=== PATIENT | female | born 1990 | race Caucasian/White ===

== ENCOUNTER → 2024-04-30 17:04 | Outpatient (REF) | payer OTHER, SELFPAY | LOC: RAD 17:04 | PROVIDERS: ATTENDING PHYSICIAN Nurse Practitioner Family | DX: M79.604 Pain in right leg (principal) | CPT/HCPCS: 93971 ==

== ENCOUNTER 2025-02-01 10:14 | Emergency (ER) | payer BC, SELFPAY ==
[2025-02-01 10:31] VITALS: BP 117/68
[2025-02-01 11:00] LABS: Hematocrit 35.1 % (37.0-47.0); Hemoglobin 11.5 g/dL (12.0-16.0); Mean Corp Hgb Conc. 32.8 g/dL (33.0-37.0); Mean Corpuscular Volume 91.4 fL (81.0-99.0); Nucleated Red Blood Cells % 0 %; Platelet Count 301 10^3/uL (130-400); Red Cell Dist. Width 11.5 % (11.5-14.5)
[2025-02-01 11:10] LABS: HCG, Serum Qualitative Screen Negative
[2025-02-01 11:16] LABS: ALT (SGPT) 14 U/L (0-35); AST (SGOT) 17 U/L (14-36); Albumin 4.7 g/dl (3.5-5.0); Alkaline Phosphatase 61 U/L (38-126); Blood Urea Nitrogen 4 mg/dl (7-17); Calcium 8.9 mg/dl (8.4-10.2); Carbon Dioxide 23 mmol/L (22-30); Chloride 108 mmol/L (98-107); Glucose 111 mg/dl (70-99); Potassium 3.8 mmol/L (3.5-5.1); Sodium 141 mmol/L (135-145); Total Protein 7.4 g/dl (6.3-8.2); eGFR > 60.00
[2025-02-01 11:33] VITALS: BP 107/67
--- NOTE | 2025-02-01 11:56 | ED.GENMED ---
History of Present Illness
General
Chief Complaint: Fainting/Passed Out
Source: patient and spouse
Exam Limitations: none
Time Seen by Provider: 02/01/25 11:46
History of Present Illness
History of Present Illness:
See MDM
Past History
Past History
ED Past Medical History: Hypothyroidism and Psychiatric (Depression)
ED Past Surgical History: None
Social History
Tobacco: Non-smoker
Alcohol: None
Drug: None
Personal: Single
Living: with family
Phy Exam
Physical Exam
Physical Exam:
See MDM
Course
Orders/Labs/Results
Orders:
Orders
02/01/25 10:37
ECG [Electrocardiogram (*1)] Urgent
Reason for Study: Syncope
02/01/25 10:38
EKG- Treatment ONCE
Test Result ONCE
02/01/25 10:42
Complete Blood Count/With Diff Urgent
Comprehensive Metabolic Panel Urgent
HCG, Serum Qualitative Screen Urgent
TSH Reflex To Free T4 Urgent
02/01/25 11:59
Ibuprofen [Motrin] 600 mg PO NOW STA
Abnormal Lab Results
02/01/25
10:42
RBC 3.84 L 10^6/uL
(4.20-5.40)
Hgb 11.5 L g/dL
(12.0-16.0)
Hct 35.1 L %
(37.0-47.0)
MCHC 32.8 L g/dL
(33.0-37.0)
Absolute Lymphs (auto) 1.1 L 10^3/uL
(1.2-3.4)
Neutrophils % 79.5 H %
(42.2-75.2)
Lymphocytes % 15.9 L %
(20.5-51.1)
Chloride 108 H mmol/L
(98-107)
BUN 4 L mg/dl
(7-17)
Glucose 111 H mg/dl
(70-99)
02/01/25 10:42
02/01/25 10:42
Vital Signs
Initial and Last Documented VS:
Initial Vital Signs
Temp Pulse Resp BP Pulse Ox
98.7 F 84 16 117/68 100
02/01/25 10:31 02/01/25 10:31 02/01/25 10:31 02/01/25 10:31 02/01/25 10:31
Last Documented Vital Signs
Temp Pulse Resp BP Pulse Ox
98.7 F 63 12 110/62 99
02/01/25 10:31 02/01/25 12:15 02/01/25 12:15 02/01/25 12:32 02/01/25 12:15
MDM/Problems Addressed
Differential Diagnosis Includes:
Note:
CHIEF COMPLAINT(S)
Headache and syncope episodes.
HISTORY OF PRESENT ILLNESS
The patient is a 34-year-old female with a history of bipolar disorder and anxiety, who presents with a headache and recent episodes of syncope. The patient reports having an episodes of syncope today, the first occurring at work, followed by a loss
of memory of certain events. The patient previously called a family member, stating she felt lost and had an anxiety attack. She has been stressed due to an issue with a friend and has recently been in quarantine after having COVID, which she
believes may be contributing factors. The patient is currently off her bipolar medication, which she has been off before, and reports experiencing side effects when discontinuing them. She is concerned about needing a refill for her medication, as
blood work and an EKG are required to obtain it. The patient states she has a headache and is unsure if she hit her head during the syncope episodes. at bedside and believes that much of her symptoms could be related to being off her
medications and anxiety.
PAST MEDICAL AND SURGICAL HISTORY
Bipolar disorder and anxiety.
SOCIAL DETERMINANTS OF HEALTH
The patient is experiencing stress due to a personal issue with a friend, and the stress of recent quarantine due to COVID infection.
PHYSICAL EXAM
- General: The patient appears well and engaged in conversation.
- Neurological: The patient reports experiencing a headache. Examination does not show any obvious neurological deficits; no slurred speech or difficulty with motor functions observed.
Nursing notes reviewed and vital signs reviewed.
PLAN
Obtain necessary blood work and EKG to facilitate medication refill for bipolar disorder. Administer PO motrin for headache.
DIFFERENTIAL DIAGNOSIS
- Syncope
- Anxiety disorder
- Medication withdrawal effects
- Dehydration
- Orthostatic hypotension
- Neurological event (rule out via CT if clinically indicated)
- Migraine
- Vasovagal response
- Seizure
- Post-COVID syndrome
SUMMARY OF ENCOUNTER
The patient presented with headache and syncope episodes. Considering the recent discontinuation of bipolar medication and quarantine-induced stress, these factors were identified as potential contributors to her symptoms. A non-urgent approach was
deemed appropriate, with emphasis on resuming her medication regimen. Immediate imaging was not pursued due to absence of significant trauma or neurological deficits, avoiding unnecessary radiation exposure.
DISPOSITION
Discharge.
EMERGENCY TREATMENTS ADMINISTERED
PO motrin for headache relief.
PATIENT EDUCATION AND COUNSELING
Discussed the unlikely benefit of a CT scan given the absence of neurological deficits and significant trauma. Emphasized importance of medication adherence and managing anxiety.
FOLLOW-UP INSTRUCTIONS
Recommended follow-up with her psychologist for medication management and stress-related concerns. Suggested close follow-up planning given the recent syncope and stress factors.
MEDICATION RECONCILIATION
- Motrin
- Continue current medication regimen as prescribed by her psychologist upon obtaining refill through coordination of necessary blood work and EKG results.
MEDICAL DECISION MAKING
- Number and Complexity of Problems Addressed: Chronic conditions affecting care include bipolar disorder and anxiety.
- Data:
- Category 1: Blood work and EKG ordered to approve medication refill for bipolar disorder management.
- Category 2: Inputs considered from the patients family member regarding recent episodes and preceding confusion.
- Risk: No prescription drug change; consideration for CT scan deferred due to lack of indications and potential radiation risks.
DIAGNOSIS
- Syncope (R55)
- Anxiety disorder (F41.9)
- Bipolar disorder (F31.9)
- Acute headache (R51)
- Recent COVID-19 infection (U07.1, as secondary context)
CARE-UPDATE
02/01/25 - 12:06
Discussed with the patient and her about the necessity of a CT head scan. After evaluating the absence of indicative clinical signs of intracranial hemorrhage, including a minor headache without accompanying vomiting or focal neurological
deficits, a consensus was reached to forego an additional CT since recent imaging was normal, and they are monitoring a benign brain mass by previous MRI.
SUMMARY OF ENCOUNTER
The patient presented for evaluation following episodes of syncope. She experienced a minor headache, but there was no clinical evidence of head injury. An EKG showed sinus rhythm, and blood work did not reveal any significant abnormalities. A
shared decision-making process was undertaken, resulting in the decision not to obtain a CT scan due to the patients well appearance. Blood work and EKG results were faxed to the patients psychiatry office to facilitate a refill of her bipolar
medications.
DISPOSITION
Discharge
PLAN
Facilitate the patients access to blood work and EKG for her psychiatric care, and ensure follow-up with her psychologist for medication management and stress-related concerns.
INDEPENDENT REVIEW OF LABS AND INTERPRETATION OF TESTS
- My independent review of the EKG is sinus rhythm.
- My independent review of blood work is without significant abnormality.
MEDICATION RECONCILIATION
1. PO motrin
2. Coordination of necessary blood work and EKG results for bipolar medication refill.
MEDICAL DECISION MAKING
- Number and Complexity of Problems Addressed: Chronic conditions affecting care include bipolar disorder and anxiety. Differential diagnosis includes syncope, anxiety disorder, medication withdrawal effects, dehydration, orthostatic hypotension,
neurological event, migraine, vasovagal response, seizure, and post-COVID syndrome.
- Data:
- Category 1: Blood work and EKG ordered to approve medication refill.
- Category 2: EKG reviewed showing sinus rhythm.
- Risk: Prescription medication was prescribed, involving coordination for a refill, and significant social determinants of health are affecting care, including stress and recent quarantine due to COVID infection.
DIAGNOSIS
- Syncope (R55)
- Anxiety disorder (F41.9)
- Bipolar disorder (F31.9)
- Acute headache (R51)
*Pulse Oximetry
SaO2: 99
Oxygen Mode of Delivery: Room air
Patient hypoxic: no
*Critical Care Note
Total Time (30-74mins, 75-104mins- exclusive of procedures): Not Applicable
ED Attending Note
-
Portions of this chart may have been created with voice recognition software.� Occasional wrong word or��sound alike� substitutions may have occurred due to the inherent limitations of voice recognition software.
Discharge Plan
Departure
Patient Disposition: Home (Routine Discharge)
Date of Disposition: 02/01/25
Time of Disposition: 12:11
Patient with high blood pressure during this ER visit?: No
Discharge Problem:
Syncope
Prescriptions:
No Action
levothyroxine 25 MCG tablet
25 mcg PO DAILY
fluoxetine 20 MG capsule
20 mg PO DAILY
Junel Fe 1mg-20mcg
1 tab PO DAILY
[place] 3
3 cap PO HS
cyanocobalamin (vitamin B-12) 1,000 MCG tablet
100 mcg PO DAILY Qty: 30 0RF
Referrals:
Aurelia Bergman CRNP [Family Provider, Family Practice]
Activity Restrictions/Additional Instructions:
Please return for any worsening symptoms.
You may return at any time if you have further concerns.
Please follow up with your doctor at the first available appointment, preferably this week.
Please take your medications as prescribed.
Thank you for choosing [facility].
Interventions
Interventions:
*Risk Screen - Suicide Last Done: 02/01/25 10:31
*General Assessment Last Done: 02/01/25 10:31
*Neglect/Abuse Screening Last Done: 02/01/25 11:41
*ED- Fall Risk Assessment Last Done: 02/01/25 11:41
*ED COVID-19 Vaccine History Last Done: 02/01/25 11:41
*ED Influenza Vaccine History Last Done: 02/01/25 11:41
*Nursing Disposition Last Done: 02/01/25 12:32
ED- Cardiac Assessment Last Done: 02/01/25 11:41
ED- Neurological Assessment Last Done: 02/01/25 11:41
Discharge Date and Time
Discharge Date/Time: 02/01/25 12:33
Print Language: AZERI
[2025-02-01 12:00] VITALS: BP 110/73
[2025-02-01] MEDS: MOTRIN 600 MG PO (12:21)
[2025-02-01 12:32] VITALS: BP 110/62
== END 2025-02-01 12:33 | disposition home or self-care (01) ==
LOC: EMR 10:14
PROVIDERS: Emergency Medicine; EMERGENCY PHYSICIAN Student in an Organized Health Care Education/Training Program; FAMILY PHYSICIAN Nurse Practitioner Family
DX: R55 Syncope and collapse (principal); F31.9 Bipolar disorder, unspecified; F41.9 Anxiety disorder, unspecified; D33.2 Benign neoplasm of brain, unspecified; E03.9 Hypothyroidism, unspecified; Z86.16 Personal history of COVID-19
CPT/HCPCS: 99284; 80053; 84443; 84703; 85025; 93005